=== PATIENT | male | born 1975 | race Caucasian/White ===

== ENCOUNTER 2018-02-03 05:32 | Day surgery (SDC) | payer OTHER ==
[~2018-02-03] VITALS: Ht 170.2 cm; Wt 74.8 kg
--- NOTE | ~2018-02-03 | H ---
[facility] [address] [place] [address] HISTORY AND PHYSICAL Name: ANNA SYKES Room #: DEP [facility] MMartin.#: [id number] Admission: 02/03/18 Attend Phys: Ross Nixon Discharge: 02/03/18 Date of : 73 Report #: [id number] THIS REPORT FOR: //name// CC: Ross Sandy DICTATED BY: Myra NELSON CHIEF COMPLAINT: Left knee pain. HISTORY OF PRESENT ILLNESS: The patient presents in the office, complaining of left knee pain, popping, swelling, giving out and grinding. The patient states that the pain is worse with employment or whether at work, walking, running, sitting for long periods of time, driving, standing still or climbing stairs. The patient reports that the pain is better with medication and rest. He complains of the pain intermittently over the last 20 years, but in the last 2 weeks has noticed increasing pain in the knee. He denies any specific injury. The patient has previously tried oral anti-inflammatories as well as an MRI without relief of his pain. PAST MEDICAL HISTORY: Significant for anxiety/depression, arthritis and other illness. PAST SURGICAL HISTORY: Vasectomy. REVIEW OF SYSTEMS: GENERAL: The patient denies sweats, chills, fevers, malaise, weight changes, appetite changes and fatigue. EYES: Positive for glasses. ENT: Positive for decreased hearing. MUSCULOSKELETAL: Positive for joint swelling, pain, stiffness, back pain and arthritis. NEUROLOGIC: Positive for tingling and memory loss. PSYCHIATRIC: Positive for depression and anxiety. The remainder of the complete review of systems is negative. FAMILY HISTORY: Significant for alcohol abuse and heart disease. SOCIAL HISTORY: The patient is right handed. He is and lives with others and reports drinking 1-3 drinks per week. MEDICATIONS: Meloxicam, tramadol. ALLERGIES: No known drug allergies. PHYSICAL EXAMINATION: VITAL SIGNS: Height 67 inches, weight [address] [address] HISTORY AND PHYSICAL Name: ANNA SYKES Room #: [facility] Ida#: [id number] Admission: 02/03/18 Attend Phys: Ross Nixon Discharge: 02/03/18 Date of : 73 Report #: [id number] GENERAL: The patient is awake, alert and oriented, in no acute distress. HEENT: Pupils are equal, round. Extraocular movements grossly intact. NECK: Supple, without lymphadenopathy, no bruit. CHEST: Clear to auscultation bilaterally. COR: Regular rate and rhythm without murmur. ABDOMEN: Soft, nontender. EXTREMITIES: Left knee exam: There is 1+ effusion. Skin is dry and intact, lower extremity is neurovascularly intact. Range of motion is 0-120 degrees. Calf is soft, nontender. There is tenderness over the medial joint line as well as lateral joint line. There is a positive medial and lateral Louis's. The patient is stable to varus valgus stress and Walter is 0. There is patellofemoral compression pain with a 1+ patellofemoral crepitus. X-RAYS: X-rays performed in the office on 12/28/2017 including 4 views of the left knee show no fractures or bony abnormalities. No significant joint space narrowing. The Merchant view shows patella to be well centralized. MRI: MRI performed at [facility] on 12/18/2017 shows a longitudinal, horizontal, oblique tearing of the posterior horn of the medial meniscus with a tiny 2.2 x 3 mm parameniscal cyst arising from the posterior margin of the posterior horn. There is no displaced meniscal flap. No additional internal derangement of the left knee. ASSESSMENT: Left knee pain, effusion, medial meniscus tear and chondromalacia. PLAN: MRI and radiographic findings were reviewed in detail with the patient. We have reviewed continued nonoperative management versus operative intervention. We discussed left knee arthroscopy, partial medial meniscectomy, chondroplasty and I have reviewed the risks, benefits, alternatives and potential complications of treatment. We have discussed AAOS website as well as AANA website where surgical information, treatment and videos can be found regarding the plan and proposed surgery. We discussed to anticipate time off work, potential to return to work at light duty or limited type basis as well as the potential need for physical therapy. We discussed and reviewed the potential for blood clots that can spread to other parts of body including lungs and I have reviewed potential medications that can be used to limit this, the patient desires. Questions were encouraged, all were answered. A knee arthroscopy handout was provided for the patient in the office. The option of obtaining a second opinion was offered as well and the patient has declined this. We will plan on proceeding with the above-noted procedure. <ELECTRONICALLY SIGNED> By: Ross Kwan MD 04/23/18 [id number] [id number] Ross Kwan MD /nt
--- NOTE | ~2018-02-03 | O ---
[facility] [address] [place] [address] OPERATIVE REPORT Name: ANNA SYKES Richie Room #: DEP [facility] Ida#: [id number] Admission: 02/03/18 Attend Phys: Ross Nixon Discharge: 02/03/18 Date of : 73 Report #: [id number] THIS REPORT FOR: //name// CC: Ross Sandy DATE OF SERVICE: 02/03/2018 PREOPERATIVE DIAGNOSES: Left knee pain, effusion, medial meniscus tear, chondromalacia. POSTOPERATIVE DIAGNOSES: Left knee pain, effusion, medial meniscus tear, chondromalacia. With intra-articular loose bodies. PROCEDURE PERFORMED: Left knee arthroscopy, partial medial meniscectomy, chondroplasty of medial femoral condyle, loose body removal. SURGEON: Ross Kwan M.D. DIRECTOR SECURITY RISK MANAGEMENT: Myra Adam PA-C. ANESTHESIA: General per LMA. FLUIDS: 600 mL crystalloid. ESTIMATED BLOOD LOSS: less than 5 mL. TOURNIQUET TIME: Approximately 14 minutes at 300 mmHg. DESCRIPTION OF PROCEDURE: After proper identification of the patient and operative site in preoperative holding area, the operative site was signed by myself. Prophylactic antibiotics given. The patient elected to receive general anesthesia. The patient was brought back to the operative suite after induction of satisfactory general anesthesia per LMA. The left knee was examined and mild effusion was noted. It was ligamentously stable and had full range of motion compared to the opposite knee. Tourniquet was applied to the operative thigh. Limb was placed in an arthroscopic leg burton and sterilely prepped and draped in the usual manner. Limb was elevated and exsanguinated with an Esmarch. Tourniquet was inflated to 300 mmHg. Superior medial portal was created for inflow purposes. Joint was inflated with an arthroscopic pump set at 40 mmHg. An anterolateral and then an anteromedial portal were created using spinal needle for localization. Examination of the suprapatellar pouch, medial and lateral gutters revealed several small chondral loose bodies. These were 2-4 mm in size and very thin overall. These were debrided with motorized shaver. Patellofemoral articulation was normal in its appearance. No obvious chondral defect was noted. Medial compartment of the knee revealed a complex tear of the [address] [address] OPERATIVE REPORT Name: MONYANNA Richie Room #: DEP [facility] Alexys.#: [id number] Admission: 02/03/18 Attend Phys: Ross Nixon Discharge: 02/03/18 Date of : 73 Report #: [id number] posterior horn extending into the mid body. A combination of hand and motorized instrumentation was used to perform a partial medial meniscectomy back to a stable peripheral rim. Several small very superficial chondral flaps were noted on the medial femoral condyle, and these were carefully debrided. The anterior and posterior cruciate ligaments are intact and stable to probing. Lateral compartment of knee demonstrated no chondral abnormalities, and the lateral meniscus was intact. The knee was thoroughly irrigated with normal saline. Remaining medial meniscus and chondral areas were stable to probing. Portals were closed with simple nylon stitch and 20 mL of 0.2% Naropin was injected around the skin incisions and into the knee joint to aid in postoperative pain control. Sterile compressive dressing was applied. He was awakened and transferred to the recovery room in stable condition. <ELECTRONICALLY SIGNED> By: Ross Kwan MD 04/23/18 0933 [id number] Ross Kwan MD /nt
[~2018-02-03 05:32] MED LIST: MOBIC7.5 MG PO
[2018-02-03 09:11] VITALS: BP 138/76
[2018-02-03 10:51] VITALS: BP 138/76
== END 2018-02-03 12:25 | disposition home or self-care (01) ==
LOC: OR 05:32 → TBA 05:32 → OR 08:12
DX: M23.222 Derangement of posterior horn of medial meniscus due to old tear or injury, left knee (principal); M94.262 Chondromalacia, left knee; M23.42 Loose body in knee, left knee; M25.462 Effusion, left knee; M19.90 Unspecified osteoarthritis, unspecified site; F17.210 Nicotine dependence, cigarettes, uncomplicated; F41.8 Other specified anxiety disorders; F32.89 Other specified depressive episodes; Z98.890 Other specified postprocedural states; Z79.899 Other long term (current) drug therapy
CPT/HCPCS: 50010; 50101; 50405; 51038; 54170; 56526; 57103; 62110; 62900; 70005